=== PATIENT | male | born 1965 | race American Indian/Alaskan Native ===

== ENCOUNTER 2017-02-15 14:46 | Emergency (ER) | payer OTHER ==
[2017-02-15 15:14] VITALS: BP 117/73
--- NOTE | 2017-02-15 15:50 | Emergency Department Report ---
Suture/Staple Removal - [facility] Chief Complaint: Laceration/Recheck/Suture Stated Complaint: SUTURE REMOVED Time Seen by Provider: 02/15/17 15:42 When Sutures or [place] Placed: 8-10 Days Ago Wound Location: left eye ED Review of Systems ROS: Stated complaint: SUTURE REMOVED Other details as noted in HPI Constitutional: denies: chills, fever Eyes: denies: eye pain, eye discharge, vision change ENT: denies: ear pain, throat pain Respiratory: denies: cough, shortness of breath, wheezing Cardiovascular: denies: chest pain, palpitations Endocrine: no symptoms reported Gastrointestinal: denies: abdominal pain, nausea, diarrhea Genitourinary: denies: urgency, dysuria Musculoskeletal: denies: back pain, joint swelling, arthralgia Skin: other (simple suture intact ). denies: rash, lesions Neurological: denies: headache, weakness, paresthesias Psychiatric: denies: anxiety, depression Hematological/Lymphatic: denies: easy bleeding, easy bruising ED Past Medical Hx - Past Medical History Previous Medical History?: No - Surgical History Past Surgical History?: No - Social History Smoking Status: Never Smoker Substance Use Type: None - Medications Home Medications: Home Medications Medication Instructions Recorded Confirmed Last Taken Type No Known Home Medications [No 02/06/17 02/06/17 Unknown History Reported Home Medications] Suture Removal Exam - Exam General: Vital signs noted. No distress. Alert and acting appropriately. Wound: No Pathologic Erythema, No Tenderness, No Drainage, No Pus, No Wound Dehiscence Other Systems: All other systems reviewed and are unremarkable. ED Course Vital Signs 02/15/17 15:12 Temperature 98.6 F Pulse Rate 61 Respiratory 18 Rate Blood Pressure 117/73 O2 Sat by Pulse 99 Oximetry ED Recheck MDM - Differential Diagnosis Suture/Staple Removal - Medical Decision Making suture removal from the left eyebrow Critical care attestation.: If time is entered above; I have spent that time in minutes in the direct care of this critically ill patient, excluding procedure time. ED Disposition Clinical Impression: Visit for suture removal Disposition: DC-01 TO HOME OR SELFCARE Is pt being admited?: No Does the pt Need Aspirin: No Condition: Stable Instructions: Suture Removal (ED) Referrals: PRIMARY CARE, [Primary Care Provider] - 3-5 Days Time of Disposition: 15:50
== END 2017-02-15 16:17 | disposition home or self-care (01) ==
LOC: ED 14:46
DX: Z48.02 Encounter for removal of sutures (principal)